=== PATIENT | female | born 1980 | race African-American/Black ===

== ENCOUNTER 2018-02-24 21:08 | Outpatient (CLI) | payer BC, OTHER ==
[2018-02-24 22:06] LABS: ADD MAN DIFF? NO
[2018-02-24 22:10] LABS: BASOPHILS % 0.3 % (0.0-2.0); EOSINOPHILS # 0.1 10^3/ul (0.0-0.5); EOSINOPHILS % 1.2 % (0.0-7.0); HEMATOCRIT 28.4 % (37.0-47.0); HEMOGLOBIN 9.7 g/dl (12.0-16.0); LYMPHOCYTES % 17.6 % (15.0-51.0); MEAN CORPUSCULAR HGB CONC 34.2 g/dl (32.0-37.0); MEAN CORPUSCULAR VOLUME 90.7 fl (82.0-101.0); MEAN PLATELET VOLUME 9.6 fl (7.4-10.4); MONOCYTE # 0.7 10^3/ul (0.3-0.9); MONOCYTES % 5.7 % (0.0-11.0); NEUTROPHIL # 8.6 10^3/ul (1.6-7.5); NEUTROPHILS % 73.8 % (39.0-77.0); PLATELET COUNT 238 10^3/UL (140-415); RED BLOOD COUNT 3.13 10^6/ul (4.20-5.40); RED CELL DISTRIBUTION WIDTH 12.2 % (11.5-14.5)
[2018-02-24 22:10] LABS: WHITE BLOOD COUNT 11.6 10^3/ul (4.8-10.8)
[2018-02-24 22:29] LABS: GLUCOSE 105 mg/dl (70-220)
== END 2018-02-24 23:20 | disposition home or self-care (01) ==
LOC: OBT 21:08 → L-D 21:10 → OBT 23:20
DX: O26.892 Other specified pregnancy related conditions, second trimester (principal); Z3A.27 27 weeks gestation of pregnancy; R42 Dizziness and giddiness
CPT/HCPCS: 76815; 82947; 85025